=== PATIENT | female | born 1940 | race Caucasian/White ===

== ENCOUNTER → 2018-05-28 | Outpatient (REF) | payer MEDICARE, BC ==
[~2018-05-28] MED LIST: HYDROCHLORO25 MG/TAB PO; LISINOPRIL10 MG PO; NORVASC10 MG PO
[2018-05-28 08:38] LABS: HEMATOCRIT 41.3 % (37.0-47.0); HEMOGLOBIN 13.9 g/dl (12.0-16.0); IMMATURE GRANULOCYTES 0.4 % (0.0-5.0); MEAN CELL VOLUME 94.5 fL CALC (80.0-100.0); MEAN CORPUSCULAR HGB 31.8 pG CALC (26.0-32.0); MEAN CORPUSCULAR HGB CONC 33.7 g/L CALC (32.0-36.0); NEUT# 2.34 thou/uL (2.00-7.15); RED BLOOD COUNT 4.37 mill/uL (4.20-5.60); RED CELL DISTRI WIDTH 12.8 % (11.5-15.5)
[2018-05-28 08:40] LABS: ALBUMIN 4.2 g/dL (3.2-5.0); ALKALINE PHOSPHATASE 89 u/l (38-126); ANION GAP 13 (6-22 (CALC)); BILIRUBIN, TOTAL 0.7 mg/dL (0.0-1.4); BUN 14 mg/dL (8-23); BUN/CREATININE RATIO 20 (12-20 (CALC)); CALCULATED LDLCHOLESTEROL 94 mg/dL (62-129 (CALC)); CARBON DIOXIDE 25 mmol/l (22-30); CHLORIDE 105 mmol/l (95-108); CHOLESTEROL HDL RATIO 2.7 (<4.4 (CALC)); CREATININE 0.7 mg/dL (0.5-1.0); GFR > 60 ML/MIN (>=60 (CALC)); GFR FOR AFR.AMER. > 60 ML/MIN (>=60 (CALC)); HDL CHOLESTEROL 70 mg/dL (>=40); POTASSIUM 4.1 mmol/l (3.5-5.1); SGOT/AST 28 u/l (9-36); SODIUM 140 mmol/l (137-146); TOTAL CHOLESTEROL 188 mg/dl (0-199); TOTAL PROTEIN 7.3 g/dL (6.3-8.2); TOTAL TRIGLYCERIDES 120 mg/dl (30-149); VLDL CHOLESTROL 24 mg/dl (0-48 (CALC))
[2018-05-28 09:09] LABS: TSH, 3RD GENERATION 4.16 uIU/mL (0.47 - 4.68)
== END | disposition home or self-care (01) ==
LOC: LAB 07:20
PROVIDERS: ATTEND Nurse Practitioner Adult Health
DX: E11.9 Type 2 diabetes mellitus without complications (principal); I10 Essential (primary) hypertension

== ENCOUNTER → 2018-06-02 | Outpatient (REF) | payer MEDICARE, BC ==
[2018-06-02 10:57] LABS: URINE BILIRUBIN - DIPSTICK NEGATIVE (NEGATIVE); URINE BLOOD DIPSTICK NEGATIVE (NEGATIVE); URINE COLOR YELLOW; URINE GLUCOSE - DIPSTICK NEGATIVE (NEGATIVE); URINE KETONE NEGATIVE (NEGATIVE); URINE LEUK ESTERASE NEGATIVE (NEGATIVE); URINE NITRITE - DIPSTICK NEGATIVE (Negative); URINE PROTEIN - DIPSTICK NEGATIVE (NEG-TRACE); URINE SPECIFIC GRAVITY <=1.005; URINE UROBILINOGEN - DIPSTICK 0.2 E.U./dL (0.2)
== END | disposition home or self-care (01) ==
LOC: LABSPEC 09:32
PROVIDERS: ATTEND Nurse Practitioner Family
DX: R35.0 Frequency of micturition (principal); B37.89 Other sites of candidiasis

== ENCOUNTER → 2018-06-04 | Outpatient (REF) | payer MEDICARE, BC | END | disposition home or self-care (01) | LOC: BD 09:12 | PROVIDERS: ATTEND Nurse Practitioner Family | DX: N95.1 Menopausal and female climacteric states (principal) ==

== ENCOUNTER 2018-06-21 14:07 | Emergency (ER) | payer MEDICARE, BC ==
[~2018-06-21] VITALS: Ht 157.5 cm; Wt 78.2 kg
[2018-06-21 14:57] LABS: URINE BILIRUBIN - DIPSTICK NEGATIVE (NEGATIVE); URINE BLOOD DIPSTICK NEGATIVE (NEGATIVE); URINE COLOR YELLOW; URINE GLUCOSE - DIPSTICK NEGATIVE (NEGATIVE); URINE KETONE NEGATIVE (NEGATIVE); URINE LEUK ESTERASE NEGATIVE (NEGATIVE); URINE NITRITE - DIPSTICK NEGATIVE (Negative); URINE PROTEIN - DIPSTICK NEGATIVE (NEG-TRACE); URINE SPECIFIC GRAVITY 1.025; URINE UROBILINOGEN - DIPSTICK 0.2 E.U./dL (0.2)
[2018-06-21 15:01] LABS: HEMATOCRIT 44.2 % (37.0-47.0); HEMOGLOBIN 15.1 g/dl (12.0-16.0); IMMATURE GRANULOCYTES 0.3 % (0.0-5.0); MEAN CELL VOLUME 94.4 fL CALC (80.0-100.0); MEAN CORPUSCULAR HGB 32.3 pG CALC (26.0-32.0); MEAN CORPUSCULAR HGB CONC 34.2 g/L CALC (32.0-36.0); NEUT# 4.26 thou/uL (2.00-7.15); RED BLOOD COUNT 4.68 mill/uL (4.20-5.60); RED CELL DISTRI WIDTH 13.1 % (11.5-15.5)
[2018-06-21 15:15] LABS: ALBUMIN 4.8 g/dL (3.2-5.0); ALKALINE PHOSPHATASE 105 u/l (38-126); ANION GAP 18 (6-22 (CALC)); BILIRUBIN, TOTAL 0.6 mg/dL (0.0-1.4); BUN 15 mg/dL (8-23); BUN/CREATININE RATIO 16 (12-20 (CALC)); CARBON DIOXIDE 24 mmol/l (22-30); CHLORIDE 105 mmol/l (95-108); CREATININE 0.9 mg/dL (0.5-1.0); GFR > 60 ML/MIN (>=60 (CALC)); GFR FOR AFR.AMER. > 60 ML/MIN (>=60 (CALC)); LIPASE 65 u/l (23-300); POTASSIUM 4.4 mmol/l (3.5-5.1); SGOT/AST 39 u/l (9-36); SODIUM 143 mmol/l (137-146); TOTAL PROTEIN 8.2 g/dL (6.3-8.2)
[2018-06-21] MEDS ORDERED: CARDIZEM CD240 MG PO (16:32)
[2018-06-21 17:20] VITALS: BP 190/84
== END 2018-06-21 17:31 | disposition home or self-care (01) ==
LOC: ED 14:07
PROVIDERS: Family Medicine
DX: K29.70 Gastritis, unspecified, without bleeding (principal); K21.9 Gastro-esophageal reflux disease without esophagitis; E11.9 Type 2 diabetes mellitus without complications; I10 Essential (primary) hypertension

== ENCOUNTER 2018-10-19 08:16 | Emergency (ER) | payer MEDICARE, BC ==
[~2018-10-19] VITALS: Ht 157.5 cm; Wt 75.0 kg
[~2018-10-19 08:16] MED LIST changes: +CARDIZEM CD240 MG PO
[2018-10-19 08:52] LABS: HEMATOCRIT 42.8 % (37.0-47.0); HEMOGLOBIN 14.9 g/dl (12.0-16.0); IMMATURE GRANULOCYTES 0.5 % (0.0-5.0); MEAN CORPUSCULAR HGB CONC 34.8 g/L CALC (32.0-36.0); NEUT# 5.69 thou/uL (2.00-7.15); RED BLOOD COUNT 4.65 mill/uL (4.20-5.60); RED CELL DISTRI WIDTH 12.5 % (11.5-15.5)
[2018-10-19 09:17] LABS: ALBUMIN 4.7 g/dL (3.2-5.0); ALKALINE PHOSPHATASE 103 u/l (38-126); ANION GAP 14 (6-22 (CALC)); BILIRUBIN, TOTAL 0.8 mg/dL (0.0-1.4); BUN 13 mg/dL (8-23); BUN/CREATININE RATIO 19 (12-20 (CALC)); CARBON DIOXIDE 23 mmol/l (22-30); CHLORIDE 106 mmol/l (95-108); CREATININE 0.7 mg/dL (0.5-1.0); GFR > 60 ML/MIN (>=60 (CALC)); GFR FOR AFR.AMER. > 60 ML/MIN (>=60 (CALC)); POTASSIUM 3.7 mmol/l (3.5-5.1); SGOT/AST 41 u/l (9-36); SODIUM 139 mmol/l (137-146); TOTAL PROTEIN 8.4 g/dL (6.3-8.2)
[2018-10-19 09:31] LABS: URINE BILIRUBIN - DIPSTICK NEGATIVE (NEGATIVE); URINE BLOOD DIPSTICK NEGATIVE (NEGATIVE); URINE COLOR YELLOW; URINE GLUCOSE - DIPSTICK NEGATIVE (NEGATIVE); URINE KETONE NEGATIVE (NEGATIVE); URINE LEUK ESTERASE NEGATIVE (NEGATIVE); URINE NITRITE - DIPSTICK NEGATIVE (Negative); URINE PROTEIN - DIPSTICK NEGATIVE (NEG-TRACE); URINE SPECIFIC GRAVITY <=1.005; URINE UROBILINOGEN - DIPSTICK 0.2 E.U./dL (0.2)
[2018-10-19] MEDS ORDERED: DILTIAZEM30 MG PO (11:22)
[2018-10-19] MEDS ORDERED: PROVENTIL HFA IN (11:22)
[2018-10-19 11:26] VITALS: BP 172/76
== END 2018-10-19 11:34 | disposition home or self-care (01) ==
LOC: ED 08:16
PROVIDERS: Emergency Medicine
DX: I10 Essential (primary) hypertension (principal); E11.9 Type 2 diabetes mellitus without complications; B37.0 Candidal stomatitis; R06.02 Shortness of breath; R07.9 Chest pain, unspecified

== ENCOUNTER 2019-09-22 06:42 | Emergency (ER) | payer MEDICARE, BC ==
[~2019-09-22] VITALS: Ht 157.5 cm; Wt 76.3 kg
[~2019-09-22 06:42] MED LIST changes: +DILTIAZEM30 MG PO; +PROVENTIL HFA IN
[2019-09-22 07:43] LABS: HEMATOCRIT 44.9 % (37.0-47.0); HEMOGLOBIN 15.2 g/dl (12.0-16.0); IMMATURE GRANULOCYTES 0.5 % (0.0-5.0); MEAN CELL VOLUME 94.3 fL CALC (80.0-100.0); MEAN CORPUSCULAR HGB 31.9 pG CALC (26.0-32.0); MEAN CORPUSCULAR HGB CONC 33.9 g/dL CAL (32.0-36.0); NEUT# 2.44 thou/uL (2.00-7.15); RED BLOOD COUNT 4.76 mill/uL (4.20-5.60); RED CELL DISTRI WIDTH 12.6 % (11.5-15.5)
[2019-09-22 08:01] LABS: ALBUMIN 4.8 g/dL (3.2-5.0); ALKALINE PHOSPHATASE 67 u/l (38-126); ANION GAP 12 (6-22 (CALC)); BILIRUBIN, TOTAL 0.7 mg/dL (0.0-1.4); BUN 13 mg/dL (8-23); BUN/CREATININE RATIO 20 (12-20 (CALC)); CARBON DIOXIDE 24 mmol/l (22-30); CHLORIDE 104 mmol/l (95-108); CREATININE 0.7 mg/dL (0.5-1.0); GFR > 60 ML/MIN (>=60 (CALC)); GFR FOR AFR.AMER. > 60 ML/MIN (>=60 (CALC)); POTASSIUM 3.8 mmol/l (3.5-5.1); SGOT/AST 33 u/l (9-36); SODIUM 136 mmol/l (137-146); TOTAL PROTEIN 8.4 g/dL (6.3-8.2)
[2019-09-22 09:01] VITALS: BP 184/79
== END 2019-09-22 09:12 | disposition home or self-care (01) ==
LOC: ED 06:42
PROVIDERS: Emergency Medicine
DX: J02.9 Acute pharyngitis, unspecified (principal); R05 Cough; E11.9 Type 2 diabetes mellitus without complications; I10 Essential (primary) hypertension; Z20.828 Contact with and (suspected) exposure to other viral communicable diseases; Z88.9 Allergy status to unspecified drugs, medicaments and biological substances; N18.2 Chronic kidney disease, stage 2 (mild); N25.81 Secondary hyperparathyroidism of renal origin; N39.0 Urinary tract infection, site not specified; E11.65 Type 2 diabetes mellitus with hyperglycemia; N32.81 Overactive bladder; R53.83 Other fatigue

== ENCOUNTER 2019-10-19 12:45 | Emergency (ER) | payer MEDICARE, BC ==
[~2019-10-19] VITALS: Ht 157.5 cm; Wt 79.0 kg
[2019-10-19 13:26] LABS: HEMATOCRIT 43.4 % (37.0-47.0); HEMOGLOBIN 14.8 g/dl (12.0-16.0); IMMATURE GRANULOCYTES 0.3 % (0.0-5.0); MEAN CELL VOLUME 92.9 fL CALC (80.0-100.0); MEAN CORPUSCULAR HGB 31.7 pG CALC (26.0-32.0); MEAN CORPUSCULAR HGB CONC 34.1 g/dL CAL (32.0-36.0); NEUT# 5.55 thou/uL (2.00-7.15); RED BLOOD COUNT 4.67 mill/uL (4.20-5.60); RED CELL DISTRI WIDTH 12.5 % (11.5-15.5)
[2019-10-19 13:34] LABS: URINE BILIRUBIN - DIPSTICK NEGATIVE (NEGATIVE); URINE BLOOD DIPSTICK NEGATIVE (NEGATIVE); URINE COLOR YELLOW; URINE GLUCOSE - DIPSTICK NEGATIVE (NEGATIVE); URINE KETONE NEGATIVE (NEGATIVE); URINE LEUK ESTERASE NEGATIVE (NEGATIVE); URINE NITRITE - DIPSTICK NEGATIVE (Negative); URINE PROTEIN - DIPSTICK NEGATIVE (NEG-TRACE); URINE SPECIFIC GRAVITY <=1.005; URINE UROBILINOGEN - DIPSTICK 0.2 E.U./dL (0.2)
[2019-10-19 13:45] LABS: ALBUMIN 4.7 g/dL (3.2-5.0); ALKALINE PHOSPHATASE 74 u/l (38-126); AMYLASE 70 u/l (30-110); ANION GAP 13 (6-22 (CALC)); BILIRUBIN, TOTAL 0.6 mg/dL (0.0-1.4); BUN 12 mg/dL (8-23); BUN/CREATININE RATIO 18 (12-20 (CALC)); CARBON DIOXIDE 25 mmol/l (22-30); CHLORIDE 102 mmol/l (95-108); CREATININE 0.7 mg/dL (0.5-1.0); GFR > 60 ML/MIN (>=60 (CALC)); GFR FOR AFR.AMER. > 60 ML/MIN (>=60 (CALC)); LIPASE 76 u/l (23-300); POTASSIUM 4.1 mmol/l (3.5-5.1); SGOT/AST 34 u/l (9-36); SODIUM 136 mmol/l (137-146); TOTAL PROTEIN 8.2 g/dL (6.3-8.2)
[2019-10-19 15:24] VITALS: BP 197/81
--- NOTE | 2019-10-21 08:45 | NUR ---
PRELIMINARY BLOOD CX RESULTS SHOW GRAM POSITIVE COCCI IN 1/4 BOTTLES, LIKELY A CONTAMINANT. SPOKE WITH DR CRUZ IN ER, ADVISED TO FOLLOW UP WITH FINAL RESULTS WHEN AVAIALABL.
--- NOTE | 2019-10-22 13:40 | NUR ---
FINAL BLOOD CX SHOWS KOCURIA SPECIES, CONTAMINANT. REPORTED TO DR CRUZ. NO FOLLOW UP WARRANTED.
== END 2019-10-19 15:40 | disposition home or self-care (01) ==
LOC: ED 12:45
DX: K59.00 Constipation, unspecified (principal); E11.9 Type 2 diabetes mellitus without complications; I10 Essential (primary) hypertension

== ENCOUNTER 2020-02-16 06:12 | Observation (INO) | payer MEDICARE, BC ==
[~2020-02-16] VITALS: Ht 157.5 cm; Wt 79.0 kg
--- NOTE | 2020-02-16 06:16 | NUR ---
AMBULATED TO ROOM WITH STEADY GAIT.
--- NOTE | 2020-02-16 07:05 | NUR ---
CARE ASSUMED OF PT FROM Kristin CHAMPION RN. PT ADVISED OF CONT WAIT TIME FOR RESULTS. VERBALIZED UNDERSTANDING. DENIES ANY NEEDS.
--- NOTE | 2020-02-16 07:19 | NUR ---
PT MEDICATED WITH NTG SL PER MAY ORDER. PT STATES SHE IS ALLERGIC TO ASA AND CANNOT TAKE IT.
[2020-02-16 07:25] LABS: HEMATOCRIT 43.9 % (37.0-47.0); HEMOGLOBIN 15.1 g/dl (12.0-16.0); IMMATURE GRANULOCYTES 0.3 % (0.0-5.0); MEAN CELL VOLUME 92.6 fL CALC (80.0-100.0); MEAN CORPUSCULAR HGB 31.9 pG CALC (26.0-32.0); MEAN CORPUSCULAR HGB CONC 34.4 g/dL CAL (32.0-36.0); NEUT# 2.91 thou/uL (2.00-7.15); RED BLOOD COUNT 4.74 mill/uL (4.20-5.60); RED CELL DISTRI WIDTH 12.8 % (11.5-15.5)
[2020-02-16 07:37] LABS: ALBUMIN 4.3 g/dL (3.2-5.0); ALKALINE PHOSPHATASE 65 u/l (38-126); ANION GAP 12 (6-22 (CALC)); BILIRUBIN, TOTAL 0.7 mg/dL (0.0-1.4); BUN 12 mg/dL (8-23); BUN/CREATININE RATIO 18 (12-20 (CALC)); CARBON DIOXIDE 26 mmol/l (22-30); CHLORIDE 105 mmol/l (95-108); CREATININE 0.6 mg/dL (0.5-1.0); GFR > 60 ML/MIN (>=60 (CALC)); GFR FOR AFR.AMER. > 60 ML/MIN (>=60 (CALC)); LIPASE 53 u/l (23-300); POTASSIUM 3.9 mmol/l (3.5-5.1); SGOT/AST 29 u/l (9-36); SODIUM 139 mmol/l (137-146); TOTAL PROTEIN 7.7 g/dL (6.3-8.2)
[2020-02-16 07:51] LABS: ACT PARTIAL THROMBO TIME 22.7 SECONDS (20.0-32.5); INTERNATIONAL NORMALIZED RATIO 1.1 RATIO (0.7-1.3); PROTHROMBIN TIME 10.9 SECONDS (9.0-12.5)
--- NOTE | 2020-02-16 08:15 | NUR ---
PT RESTING ON STRETCHER IN NAD. RESP EVEN AND UNLABORED. SKIN WARM AND DRY. REPORTS MINIMAL PRESSURE TO LEFT SIDE OF CHEST. ADVISED OF CONT WAIT TIME FOR RESULTS. VEBRALIZED UNDERSTANDING. DENIES ANY NEEDS. CALL LIGHT GIVEN.
--- NOTE | 2020-02-16 09:10 | NUR ---
PT RESTING ON STRETCHER IN NO APPARENT DISTRESS. PT BP NOTED TO BE ELEVATED @ 223/92. IN ROOM TO MEDICATE PT WITH NORVASC PER MAR ORDER, PT STATES SHE IS ALLERGIC TO MEDICAITON AND PROVIDED THIS NURSE WITH LIST OF COMPLETE ALLERGIES.
--- NOTE | 2020-02-16 10:00 | NUR ---
PT PROVIDED DIET TRAY
--- NOTE | 2020-02-16 11:00 | NUR ---
PT RESTING ON STRETCHER IN NAD. RESP EVEN AND UNLABORED. SKIN WARM AND DRY. ADVISED OF CONT WAIT ITME FOR ROOM ASSIGNMENT ON FLOOR. VERBALIZED UNDERSTANDING. DENIES ANY NEEDS. CALL LIGHT WITHIN REACH.
--- NOTE | 2020-02-16 12:00 | NUR ---
PT RESTING ON STRETCHER IN NAD. RESP EVEN AND UNLABORED. SKIN WARM AND DRY. BP NOTED 188/82 HR 88. PT ADVISED OF CONT WAIT FOR RM. ASSISTED TO BR.
--- NOTE | 2020-02-16 13:00 | NUR ---
Reassessment of patient completed. No distress noted. Resting on bed watching tv. Verbalizes no complaints at this time.
--- NOTE | 2020-02-16 13:40 | NUR ---
REPORT GIVEN TO ANILA THOMAS
--- NOTE | 2020-02-16 13:48 | NUR ---
Admission Note Report Given to: MARTHA HIGH Transported by: X Wheelchair Stretcher Transported with: X Nurse Transporter X Patent IV O2 X Croze Machine Operator Location: ICU X [facility] PT TRANSPORTED TO MS [address].
--- NOTE | 2020-02-16 13:51 | NUR ---
PT ARRIVED TO MED/SURG ROOM 279 IN STABLE CONDITION VIA WHEELCHAIR ACCOMPANIED BY SAMPSON ANTONIO;PT AMBULATED TO BEDSIDE WITH A STEADY GAIT;WT AND VS OBTAINED BY JONATHAN NAVARRO, CURRENT BP 194/80 HR 71;PT A&O X3,ORIENTED TO ROOM AND CALL LIGHT SYSTEM;PT REPORTS CHEST PRESSURE THAT STARTED THIS MORNING AND HAS BEEN RELEIVED SINCE ADMIT,PAIN SCALE AND REPORTING EDUCATED;RESPIRATIONS EVEN AND UNLABORED ON RA,CLEAR LUNG SOUNDS;ABDOMEN DISTENDED/SOFT ON PALPATION AND ACTIVE IN ALL 4 QUADRANTS,LAST BM 02/15/20;STRONG PEDAL PULSES;SKIN INTACT;TELE MONITORING IN PLACE;#20G TO RAC FLUSHED AND PATENT,SITE APPEARS HEALTHY;PT DENIES ANY ADDITIONAL NEEDS AT THIS TIME AND IS ENCOURAGED TO CALL FOR ASSISTANCE IF NEEDED;FALL PRECAUTIONS IN PLACE WITH BED IN THE LOWEST POSITION AND CALL LIGHT IN REACH;WILL CONTINUE TO MONITOR
[2020-02-16 14:00] VITALS: BP 194/80
--- NOTE | 2020-02-16 15:00 | NUR ---
CARL ANRP NOTIFIED OF ELEVATED BLOOD PRESSURE, NO NEW ORDERS RECEIVED AT THIS TIME.WILL CONTINUE TO MONITOR
[2020-02-16 15:42] VITALS: BP 154/58
--- NOTE | 2020-02-16 15:55 | NUR ---
PT RESTING IN SEMI FOWLERS POSITION;RESPIRATIONS EVEN AND UNLABORED ON RA;PT DENIES ANY CURRENT PAIN OR DISCOMFORTS;TELE MONITORING IN PLACE;IV SITE PATENT;CURRENT BP 154/58 HR 69, PT MEDICATED WITH SCHEDULED LOSARTAN 50MG PO;ASSESSMENT REMAINS UNCHANGED AT THIS TIME;ENCOURAGED TO CALL FOR ASSISTANCE IF NEEDED;CALL LIGHT IN REACH;WILL CONTINUE TO MONITOR
[2020-02-16 17:03] VITALS: BP 145/72
--- NOTE | 2020-02-16 17:03 | NUR ---
BP RE-CHECK 145/72
--- NOTE | 2020-02-16 17:41 | NUR ---
PT REFUSED NITRO PATCH AT THIS TIME.
[2020-02-16 19:21] VITALS: BP 174/82
--- NOTE | 2020-02-16 20:00 | NUR ---
PATIENT RESTING IN BED-POSITIONED ON LEFT SIDE. APPEARS SLEEPING WITH EYES CLOSED. RESPS ARE EVEN AND UNLABORED. TELE MONITOR IN PLACE. CALL LIGHT IN REACH. WILL CONT TO MONITOR.
--- NOTE | 2020-02-16 21:15 | NUR ---
PATIENT RESTING IN BED WATCHING TV-PATIENT WITH NO COMPLAINTS AT THIS TIME. BP WAS ELEVATED AND PATIENT MEDICATED WITH APRESOLINE 10MG IVP ORDERED VIA RIGHT AC SITE. TELE MONITOR IN PLACE. PATIENT WAS UP TO BSC AND VOIDED QS YELLOW URINE AND HAD MOD AMT OF SOFT BROWN STOOL. SAFETY PRECAUTIONS REINFORCED. CALL LIGHT IN REACH. WILL CONT TO MONITOR.
--- NOTE | 2020-02-16 22:30 | NUR ---
PATIENT CALLED AND STATES THAT SHE ISN'T FEELING WELL-STATES THAT IT WAS FROM MEDS THAT WERE GIVEN. RESPONDED TO THE ROOM AND PATIENT IS ANXIOUS AND FLUSHED AND STATING THAT IT IS "THIS, THIS". REASSURANCE GIVEN AND VS TAKEN. WILL CONT TO MONITOR. TELE MONITOR IS UNCHANGED.
--- NOTE | 2020-02-16 23:00 | NUR ---
PATIENT RESTING IN BED-APPEARS CALMER. FEELING BETTER. STATES THAT SHE IS VERY SENSATIVE TO MEDICATIONS. TELE MONITOR IS UNCHANGED. CALL LIGHT IN REACH. WILL CONT TO MONITOR.
[2020-02-17] VITALS: BP 166/72
--- NOTE | 2020-02-17 00:15 | NUR ---
RESTING IN BED-TROPS DRAWN ORDERED. VS TAKEN AND RECORDED. TELE MONITOR IN PLACE. FEELING BETTER. NITRO OINT APPLIED TO LEFT UPPER ARM ORDERED. STATES THAT IT GAVE HER A H/A LAST TIME IT WAS APPLIED. INSTRUCTED PATIENT TO CALL FOR ANY FURTHER SX. CALL LIGHT IN REACH. WILL CONT TO MONITOR.
--- NOTE | 2020-02-17 04:43 | NUR ---
PATIENT RESTING IN BED AND APPEARS SLEEPING AT THIS TIME WITH EYES CLOSED. TELE MONITOR IN PLACE. CALL LIGHT IN REACH. WILL CONT TO MONITOR.
[2020-02-17 05:00] VITALS: BP 127/63
[2020-02-17 05:30] LABS: HEMATOCRIT 40.2 % (37.0-47.0); HEMOGLOBIN 13.6 g/dl (12.0-16.0); IMMATURE GRANULOCYTES 0.4 % (0.0-5.0); MEAN CELL VOLUME 93.9 fL CALC (80.0-100.0); MEAN CORPUSCULAR HGB 31.8 pG CALC (26.0-32.0); MEAN CORPUSCULAR HGB CONC 33.8 g/dL CAL (32.0-36.0); NEUT# 4.22 thou/uL (2.00-7.15); RED BLOOD COUNT 4.28 mill/uL (4.20-5.60); RED CELL DISTRI WIDTH 13.1 % (11.5-15.5)
[2020-02-17 05:51] LABS: ALBUMIN 3.7 g/dL (3.2-5.0); ALKALINE PHOSPHATASE 61 u/l (38-126); ANION GAP 10 (6-22 (CALC)); BILIRUBIN, TOTAL 0.9 mg/dL (0.0-1.4); BUN 14 mg/dL (8-23); BUN/CREATININE RATIO 19 (12-20 (CALC)); CALCULATED LDLCHOLESTEROL 108 mg/dL (62-129 (CALC)); CARBON DIOXIDE 24 mmol/l (22-30); CHLORIDE 106 mmol/l (95-108); CHOLESTEROL HDL RATIO 3.7 (<4.4 (CALC)); CREATININE 0.7 mg/dL (0.5-1.0); GFR > 60 ML/MIN (>=60 (CALC)); GFR FOR AFR.AMER. > 60 ML/MIN (>=60 (CALC)); HDL CHOLESTEROL 52 mg/dL (>=40); MAGNESIUM 2.3 mg/dL (1.6-2.3); SGOT/AST 26 u/l (9-36); SODIUM 136 mmol/l (137-146); TOTAL CHOLESTEROL 191 mg/dl (0-199); TOTAL PROTEIN 6.5 g/dL (6.3-8.2); TOTAL TRIGLYCERIDES 152 mg/dl (30-149); VLDL CHOLESTROL 30 mg/dl (0-48 (CALC))
--- NOTE | 2020-02-17 07:15 | NUR ---
REPORT RECEIVED FROM SAMPSON MUÑOZ
[2020-02-17 08:18] VITALS: BP 150/83
--- NOTE | 2020-02-17 08:20 | NUR ---
PT RESTING IN SEMI FOWLERS POSITION,A&O X3;VS OBTAINED AND ASSESSMENT COMPLETED;PT DENIES ANY CURRENT PAIN OR DISCOMFORTS,PAIN SCALE AND REPORTING EDUCATED;RESPIRATIONS EVEN AND UNLABORED ON RA,CLEAR LUNG SOUNDS;ABDOMEN SOFT ON PALPATION AND ACTIVE IN ALL 4 QUADRANTS;WEAK PEDAL PULSES;SKIN INTACT;TELE MONITORING IN PLACE;#20G TO RAC FLUSHED AND PATENT,SITE APPEARS HEALTHY;NITRO PASTE TO RIGHT UPPER CHEST;ACCUCHECK 134;PT DENIES ANY ADDITIONAL NEEDS AT THIS TIME AND IS ENCOURAGED TO CALL FOR ASSISTANCE IF NEEDED;CALL LIGHT IN REACH;WILL CONTINUE TO MONITOR
[2020-02-17] MEDS ORDERED: LOSARTAN POTASS50 MG PO (10:35)
[2020-02-17 11:24] VITALS: BP 163/75
--- NOTE | 2020-02-17 11:50 | NUR ---
PT RESTING IN SEMI FOWLERS POSITION;RESPIRATIONS EVEN AND UNLABORED ON RA;PT REPORTS HEADACHE PAIN AND NITRO PASTE REMOVED FROM RIGHT CHEST;IV SITE PATENT;TELE MONITORING IN PLACE;PT EDUCATED ON DISCHARGE ORDERS AND REPORTS THAT HER FAMILY WILL NOT BE ABLE TO PICK HER UP UNTIL 1400;PT ENCOURAGED TO CALL FOR ASSISTANCE IF NEEDED;FALL PRECAUTIONS IN PLACE WITH BED IN THE LOWEST POSITION AND CALL LIGHT IN REACH;WILL CONTINUE TO MONITOR
--- NOTE | 2020-02-17 12:50 | NUR ---
ALL DISCHARGE INSTRUCTIONS PROVIDED AT THIS TIME;PT INSTRUCTED TO F/U WITH PCP AND , TAKE LOSARTAN AND HOME MEDICATION PRESCRIBED, KEEP A LOG OF BLOOD PRESSURES AND TO RETURN TO [facility] IF SYMPTOMS WORSEN;PT VERBALIZES UNDERSTANDING AND DENIES ANY ADDITIONAL QUESTIONS OR NEEDS;IV SITE REMOVED WITH CATHETER INTACT AND TELE MONITORING REMOVED;WHEELCHAIR TO BE PROVIDED FOR D/C HOME;FAMILY TO TRANSPORT PT HOME;WILL CONTINUE TO MONITOR
--- NOTE | 2020-02-17 13:28 | NUR ---
Discharge instructions given. Patient verbalizes understanding of same. Discharged in stable condition via Wheelchair to Home with family. All belongings sent with pt. PT TRANSPORTED TO [facility] IN STABLE CONDITION VIA WHEELCHAIR ACCOMPANIED BY VOLUNTEER FOR D/C HOME;ALL BELONGINGS LEFT WITH PT.FAMILY TO TRANSPORT PT HOME.
== END 2020-02-17 13:28 | disposition home or self-care (01) ==
LOC: ED 06:12 → ED-I 08:00 → ED 08:13 → MS2 08:14
PROVIDERS: Nurse Practitioner; ADMIT Internal Medicine; ATTEND Internal Medicine
DX: R07.9 Chest pain, unspecified (principal); I10 Essential (primary) hypertension; E11.9 Type 2 diabetes mellitus without complications; F41.9 Anxiety disorder, unspecified; Z88.8 Allergy status to other drugs, medicaments and biological substances; Z20.828 Contact with and (suspected) exposure to other viral communicable diseases
CPT/HCPCS: J1650

== ENCOUNTER 2021-09-14 14:17 | Emergency (ER) | payer MEDICARE, BC ==
[~2021-09-14] VITALS: Ht 157.5 cm; Wt 78.2 kg
[~2021-09-14 14:17] MED LIST changes: +LOSARTAN POTASS50 MG PO
[2021-09-14 15:13] LABS: HEMATOCRIT 45.2 % (37.0-47.0); HEMOGLOBIN 15.4 g/dl (12.0-16.0); IMMATURE GRANULOCYTES 0.8 % (0.0-5.0); MEAN CELL VOLUME 95.8 fL CALC (80.0-100.0); MEAN CORPUSCULAR HGB 32.6 pG CALC (26.0-32.0); MEAN CORPUSCULAR HGB CONC 34.1 g/dL CAL (32.0-36.0); NEUT# 2.6 thou/uL (2.00-7.15); RED BLOOD COUNT 4.72 mill/uL (4.20-5.60); RED CELL DISTRI WIDTH 12.5 % (11.5-15.5)
[2021-09-14 15:32] LABS: ALBUMIN 4.4 g/dL (3.2-5.0); ALKALINE PHOSPHATASE 69 u/l (38-126); ANION GAP 15 (6-22 (CALC)); BILIRUBIN, TOTAL 0.8 mg/dL (0.0-1.4); BUN 12 mg/dL (8-23); BUN/CREATININE RATIO 19 (12-20 (CALC)); CARBON DIOXIDE 23 mmol/l (22-30); CHLORIDE 101 mmol/l (95-108); CREATININE 0.7 mg/dL (0.5-1.0); GFR FOR AFR.AMER. > 60 ML/MIN (>=60 (CALC)); GFR OTHER RACES > 60 ML/MIN (>=60 (CALC)); LIPASE 90 u/l (23-300); POTASSIUM 4.3 mmol/l (3.5-5.1); SODIUM 134 mmol/l (137-146); TOTAL PROTEIN 8.7 g/dL (6.3-8.2)
[2021-09-14 15:37] LABS: SGOT/AST 100 u/l (9-36)
[2021-09-14 15:58] LABS: URINE BILIRUBIN - DIPSTICK NEGATIVE (NEGATIVE); URINE BLOOD DIPSTICK TRACE-INTACT (NEGATIVE); URINE COLOR YELLOW; URINE GLUCOSE - DIPSTICK NEGATIVE (NEGATIVE); URINE KETONE NEGATIVE (NEGATIVE); URINE LEUK ESTERASE NEGATIVE (NEGATIVE); URINE PROTEIN - DIPSTICK 30 mg/dL (NEG-TRACE); URINE UROBILINOGEN - DIPSTICK 0.2 E.U./dL (0.2)
[2021-09-14 15:59] LABS: URINE NITRITE - DIPSTICK NEGATIVE (Negative)
[2021-09-14 16:00] LABS: URINE RBC 0-2 RBC/hpf (0-5); URINE SQUAMOUS EPITHELIAL CELL RARE EPI/hpf (0-FEW); URINE WBC 0-2 WBC/hpf (0-5)
[2021-09-14] MEDS ORDERED: PAXLOVID PO (18:57)
[2021-09-14 19:02] VITALS: BP 167/67
== END 2021-09-14 19:23 | disposition home or self-care (01) ==
LOC: ED 14:17
PROVIDERS: Nurse Practitioner
DX: U07.1 COVID-19 (principal); R10.31 Right lower quadrant pain; R50.9 Fever, unspecified; R52 Pain, unspecified; I10 Essential (primary) hypertension; E11.9 Type 2 diabetes mellitus without complications; Z88.6 Allergy status to analgesic agent
CPT/HCPCS: Q9967

== ENCOUNTER 2021-10-26 14:44 | Emergency (ER) | payer MEDICARE, BC ==
[~2021-10-26] VITALS: Ht 157.5 cm; Wt 78.1 kg
[2021-10-26] VITALS (9 sets, daily range): BP systolic 155–199; BP diastolic 68–86
[~2021-10-26 14:44] MED LIST changes: +PAXLOVID PO
[2021-10-26 15:40] LABS: HEMATOCRIT 40.8 % (37.0-47.0); HEMOGLOBIN 14.4 g/dl (12.0-16.0); IMMATURE GRANULOCYTES 0.4 % (0.0-5.0); MEAN CELL VOLUME 92.7 fL CALC (80.0-100.0); MEAN CORPUSCULAR HGB 32.7 pG CALC (26.0-32.0); MEAN CORPUSCULAR HGB CONC 35.3 g/dL CAL (32.0-36.0); NEUT# 4.23 thou/uL (2.00-7.15); RED BLOOD COUNT 4.4 mill/uL (4.20-5.60); RED CELL DISTRI WIDTH 12.9 % (11.5-15.5)
[2021-10-26 15:55] LABS: URINE BILIRUBIN - DIPSTICK NEGATIVE (NEGATIVE); URINE BLOOD DIPSTICK NEGATIVE (NEGATIVE); URINE COLOR YELLOW; URINE GLUCOSE - DIPSTICK NEGATIVE (NEGATIVE); URINE KETONE NEGATIVE (NEGATIVE); URINE LEUK ESTERASE NEGATIVE (NEGATIVE); URINE PROTEIN - DIPSTICK NEGATIVE (NEG-TRACE); URINE SPECIFIC GRAVITY <=1.005; URINE UROBILINOGEN - DIPSTICK 0.2 E.U./dL (0.2)
[2021-10-26 15:56] LABS: URINE NITRITE - DIPSTICK NEGATIVE (Negative)
[2021-10-26 16:08] LABS: ALBUMIN 3.9 g/dL (3.2-5.0); ALKALINE PHOSPHATASE 60 u/l (38-126); ANION GAP 14 (6-22 (CALC)); BILIRUBIN, TOTAL 0.4 mg/dL (0.0-1.4); BUN 18 mg/dL (8-23); BUN/CREATININE RATIO 24 (12-20 (CALC)); CARBON DIOXIDE 24 mmol/l (22-30); CHLORIDE 107 mmol/l (95-108); CREATININE 0.7 mg/dL (0.5-1.0); GFR FOR AFR.AMER. > 60 ML/MIN (>=60 (CALC)); GFR OTHER RACES > 60 ML/MIN (>=60 (CALC)); POTASSIUM 4.2 mmol/l (3.5-5.1); SGOT/AST 36 u/l (9-36); SODIUM 141 mmol/l (137-146); TOTAL PROTEIN 7.2 g/dL (6.3-8.2)
[2021-10-26] MEDS ORDERED: LOSARTAN POTASS50 MG PO (17:08)
[2021-10-26] MEDS ORDERED: JANUVIA50 MG PO (17:09)
== END 2021-10-26 17:20 | disposition home or self-care (01) ==
LOC: ED 14:44
PROVIDERS: Nurse Practitioner
DX: B34.9 Viral infection, unspecified (principal); E11.9 Type 2 diabetes mellitus without complications; I10 Essential (primary) hypertension; Z20.822 Contact with and (suspected) exposure to COVID-19; Z79.84 Long term (current) use of oral hypoglycemic drugs
CPT/HCPCS: J1335

== ENCOUNTER 2022-01-03 00:58 | Emergency (ER) | payer MEDICARE, BC ==
[2022-01-03] VITALS (9 sets, daily range): BP systolic 149–178; BP diastolic 58–123
[~2022-01-03] VITALS: Ht 157.5 cm; Wt 90.0 kg
[~2022-01-03 00:58] MED LIST changes: +JANUVIA50 MG PO
[2022-01-03 01:27] LABS: HEMATOCRIT 42.9 % (37.0-47.0); HEMOGLOBIN 14.7 g/dl (12.0-16.0); IMMATURE GRANULOCYTES 0.4 % (0.0-5.0); MEAN CELL VOLUME 93.7 fL CALC (80.0-100.0); MEAN CORPUSCULAR HGB 32.1 pG CALC (26.0-32.0); MEAN CORPUSCULAR HGB CONC 34.3 g/dL CAL (32.0-36.0); NEUT# 2.27 thou/uL (2.00-7.15); RED BLOOD COUNT 4.58 mill/uL (4.20-5.60); RED CELL DISTRI WIDTH 12.2 % (11.5-15.5)
[2022-01-03 02:02] LABS: ALBUMIN 4.6 g/dL (3.2-5.0); ALKALINE PHOSPHATASE 67 u/l (38-126); ANION GAP 19 (6-22 (CALC)); BILIRUBIN, TOTAL 0.9 mg/dL (0.0-1.4); BUN 18 mg/dL (8-23); BUN/CREATININE RATIO 24 (12-20 (CALC)); CARBON DIOXIDE 22 mmol/l (22-30); CHLORIDE 97 mmol/l (95-108); CREATININE 0.7 mg/dL (0.5-1.0); GFR FOR AFR.AMER. > 60 ML/MIN (>=60 (CALC)); GFR OTHER RACES > 60 ML/MIN (>=60 (CALC)); POTASSIUM 4.6 mmol/l (3.5-5.1); SGOT/AST 55 u/l (9-36); TOTAL PROTEIN 8.6 g/dL (6.3-8.2)
[2022-01-03 02:03] LABS: SODIUM 133 mmol/l (137-146)
== END 2022-01-03 02:46 | disposition home or self-care (01) ==
LOC: ED 00:58
PROVIDERS: Family Medicine
DX: R25.2 Cramp and spasm (principal)

== ENCOUNTER 2023-03-13 08:36 | Emergency (ER) | payer MEDICARE, BC ==
[~2023-03-13] VITALS: Ht 157.5 cm; Wt 70.0 kg
[2023-03-13 08:44] VITALS: BP 188/81
[2023-03-13 09:01] VITALS: BP 175/69
[2023-03-13 09:31] VITALS: BP 168/62
[2023-03-13 10:01] VITALS: BP 175/69
[2023-03-13] MEDS ORDERED: CEPACOL SORE T5.4 MG PO (11:13)
[2023-03-13] MEDS ORDERED: ZPAK PO (11:18)
[2023-03-13 11:27] VITALS: BP 175/69
== END 2023-03-13 11:28 | disposition home or self-care (01) ==
LOC: ED 08:36
DX: J02.9 Acute pharyngitis, unspecified (principal); I10 Essential (primary) hypertension; E11.9 Type 2 diabetes mellitus without complications; Z79.84 Long term (current) use of oral hypoglycemic drugs; Z20.822 Contact with and (suspected) exposure to COVID-19

== ENCOUNTER 2023-10-03 16:42 | Emergency (ER) | payer MEDICARE, BC ==
[~2023-10-03] VITALS: Ht 157.5 cm; Wt 73.9 kg
[2023-10-03] VITALS (11 sets, daily range): BP systolic 154–220; BP diastolic 65–156
[~2023-10-03 16:42] MED LIST changes: +CEPACOL SORE T5.4 MG PO; +ZPAK PO
== END 2023-10-03 19:36 | disposition home or self-care (01) ==
LOC: ED 16:42
DX: M79.671 Pain in right foot (principal); I10 Essential (primary) hypertension; E11.9 Type 2 diabetes mellitus without complications; Z79.84 Long term (current) use of oral hypoglycemic drugs